=== PATIENT | female | born 1985 | race Caucasian/White ===

== ENCOUNTER 2016-10-28 16:33 | Emergency (ER) | payer OTHER ==
[2016-10-28] MEDS ORDERED: IBUPROFEN 600 MG TAB As Ordered ONE (16:56)
--- NOTE | 2016-10-28 17:59 | EDDOCDS ---
Physician Documentation [facility] Name: Genevieve Villeda Age: 31 yrs Sex: Female : 1985 Arrival Date: 10/28/2016 Time: 16:33 Bed 13 Private MD: Binta Chahal R. Disposition: 10/28/16 17:32 Discharged to Home/Self Care. Impression: Sprain of other specified parts of left knee. - Condition is Stable. - Discharge Instructions: Knee Sprain, Knee Immobilizer, [id number]. - Prescriptions for Crutches - One pair of Adult crutches. Ibuprofen 600 mg Oral Tablet - take 1 tablet by ORAL route every 8 hours As needed take with food; 20 tablet. - Work Release Form - 4 day, Medication Reconciliation, Local Pharmacy Hours form. - Follow up: Binta Chahal; When: Call to arrange an appointment. Follow up: Orthopaedics, [facility]; When: 2 - 3 days. - Problem is new. - Symptoms are unchanged. - Notes: follow up wiht ortho. use crutches and knee immobilizer until ortho evaluation. ice 3 times a day for 20 minutes Historical: - Allergies: NITROFURAN DERIVATIVES; - Home Meds: 1. none - PMHx: none; - PSHx: radius/ulna surgery; wisdom teeth; Cholecystectomy; LEEP Procedure; - Social history: Smoking status: Patient uses tobacco products, light tobacco smoker. No barriers to communication noted, The patient speaks fluent Rwandan, Speaks appropriately for age. - Family history: Not pertinent. - : The pt / caregiver states he / she is not on anticoagulants. Home medication list is obtained from the patient. - Exposure Risk Screening:: None identified. 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 8 in. (172.72 cm); 17:58 BP 118 / 67; Pulse 87; Resp 18; kc3 16:34 Body Mass Index 23.72 (70.76 kg, 172.72 cm) elp MDM: 16:54 Ibuprofen 600 mg PO once ordered. ml 16:55 Knee, Complete Ordered. EDMS 17:30 Knee Immobilizer ordered. 17:30 Crutches ordered. 17:42 Financial registration complete. ks16 17:43 [facility] Payment Agreement was scanned into [employer] and attached to record. ks16 Administered Medications: 16:58 Drug: Ibuprofen 600 mg [ibuprofen 600 mg tablet (1 tabs)] Route: PO; ttb Signatures: Dispatcher [employer] EDSC Gary Holland MD MD ml Júnior Corona RN RN mlb1 Ginger Lewis RN RN kc3 Dede Ge, Reg Reg ks16 Kristie Thornton RN ttb The chart was reviewed and I authenticate all verbal orders and agree with the evaluation and treatment provided.Attachments: 17:43 [facility] Payment Agreement ks16 MTDD
--- NOTE | 2016-10-28 17:59 | EDDOCDS ---
Nurse's Notes [facility] Name: Genevieve Villeda Age: 31 yrs Sex: Female : 1985 Arrival Date: 10/28/2016 Time: 16:33 Bed 13 Private MD: Binta Chahal R. Diagnosis: Sprain of other specified parts of left knee Presentation: 10/28 16:34 Presenting complaint: Patient states: Right knee injury while at work began while mlb1 carrying a TV upstairs. Adult Sepsis Screening: The patient does not have new or worsening altered mentation. Patient's respiratory rate is less than 22. Systolic blood pressure is greater than 100. Patient has a qSOFA score of 0- Negative Sepsis Screen. Suicide/Homicide risk assessment- the patient denies having any suicidal and/or homicidal ideations and does not present with any other emotional, behavioral or mental health complaints. Status: Patient is not a director client services or dependent. Transition of care: patient was not received from another setting of care. 16:34 Acuity: LISSY Level 4 mlb1 16:34 Method Of Arrival: Walkin/Carried/Asstd mlb1 Triage Assessment: 16:36 General: Appears in no apparent distress, Behavior is appropriate for age, cooperative. mlb1 Pain: Location: right knee Pain currently is 7 out of 10 on a pain scale. HIV screening NA for this visit Offered previously. 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 none - PMHx: none; - PSHx: radius/ulna surgery; wisdom teeth; Cholecystectomy; LEEP Procedure; - Social history: Smoking status: Patient uses tobacco products, light tobacco smoker. No barriers to communication noted, The patient speaks fluent Ukrainian, Speaks appropriately for age. - Family history: Not pertinent. - : The pt / caregiver states he / she is not on anticoagulants. Home medication list is obtained from the patient. - Exposure Risk Screening:: None identified. Screenin:57 Screening information is obtained from the patient. Fall risk: At risk due to injury, kc3 The following interventions are performed due to a positive Fall Risk Screen: Fall Risk is added to Special Handling on the patient Summary Screen. A Fall Risk Bracelet was applied to the patient. Side Rails are placed in the up position. A Call Delatorre is given with instruction to call for help when getting out of bed. Fall Alert bracelet is placed on the patient. Assistance ADL's: requires no assistance with activities of daily living. Abuse/DV Screen: The patient / caregiver reports he/she is: not in a situation that causes fear, pain or injury. Nutritional screening: No deficits noted. Advance Directives: Currently, there is no health care proxy. home support is adequate. Assessment: 17:56 General: Appears in no apparent distress, comfortable, Behavior is appropriate for age, kc3 cooperative. Pain: Location: right knee. Neurological: Level of Consciousness is awake, alert, obeys commands, Oriented to person, place, time. Respiratory: Respiratory effort is even, unlabored. Derm: Skin is pink, warm & dry. Musculoskeletal: Circulation, motion, and sensation intact Range of motion limited in right knee. Vital Signs: 16:34 BP 151 / 76; Pulse 85; Resp 16; Temp 98.8; Pulse Ox 98% ; Weight 70.76 kg; Height 5 ft. elp 8 in. (172.72 cm); 17:58 BP 118 / 67; Pulse 87; Resp 18; kc3 16:34 Body Mass Index 23.72 (70.76 kg, 172.72 cm) [facility] Vitals: 16:34 Log In Time: October 28, 2016 at 16:32. [facility] ED Course: 16:33 Patient visited by Odalys Hylton PCA. elp 16:33 Patient moved to Waiting elp 16:34 Binta Chahal is Private Physician. elp 16:34 Patient visited by Júnior Corona, YANELY. mlb1 16:34 Patient moved to Pre RCE elp 16:35 Patient visited by Odalys Hylton PCA. elp 16:35 Triage Initiated mlb1 16:37 Patient visited by Júnior Corona, RN. mlb1 16:48 Ginger Lewis,YANELY is Primary Nurse. ck1 16:48 Patient moved to 13 ck1 16:49 Gary Holland MD is Attending Physician. ml 16:49 Patient visited by Gary Holland MD. ml 17:32 Binta Chahal is Referral Physician. ml [facility] ml 17:43 [facility] Payment Agreement was scanned into [employer] and attached to record. ks16 17:57 No IV's were initiated during this patient's visit. No procedures done that require kc3 assistance. 17:58 The patient / caregiver is instructed regarding the plan of care and ED course. kc3 Administered Medications: 16:58 Drug: Ibuprofen 600 mg [ibuprofen 600 mg tablet (1 tabs)] Route: PO; ttb Order Results: There are currently no results for this order. Outcome: 17:32 Discharge ordered by Provider. 17:57 Discharge Assessment: Patient awake, alert and oriented x 3. No cognitive and/or kc3 functional deficits noted. Patient verbalized understanding of disposition instructions. patient administered narcotics - no. The following High Risk Discharge criteria are identified: None. Discharged to home ambulatory, with crutches. Condition: stable. Discharge instructions given to patient, Instructed on discharge instructions, follow up and referral plans. medication usage, crutch walking, Demonstrated understanding of instructions, crutch walking, medications, Pt was receptive of discharge instructions/ teaching. Prescriptions given X 1. No special radiology studies were completed. Property :Personal belongings accompany Pt. 17:59 Patient left the ED. kc3 Signatures: Gary Holland MD MD ml Júnior Corona, RN RN mlb1 Rachel Kennedy,RN RN ck1 Kristie Thornton, RN RN ttb Odalys Hylton, MANDI PCT Ginger Villegas RN RN kc3 Dede Ge, Reg Reg ks16 MTDD
--- NOTE | 2016-10-29 10:51 | REP ---
RIGHT KNEE, COMPLETE: 10/28/2016. Clinical history: Knee pain. Five views are provided. There is no joint space narrowing of the medial or lateral compartment. Patellofemoral joint space is preserved. There is no subluxation, dislocation, joint effusion, fracture, or loose body. No abnormal soft tissue calcifications or avulsion. Impression: 1. Negative right knee series for fracture, loose body, joint effusion or other significant finding. Signed by Hemant Israel MD 10/29/2016 07:00 P
--- NOTE | 2016-10-30 19:00 | EDDOCDS ---
Physician Documentation [facility] Name: Genevieve Villeda Age: 31 yrs Sex: Female : 1985 Arrival Date: 10/28/2016 Time: 16:33 Bed 13 Private MD: Binta Chahal R. Disposition: 10/28/16 17:32 Discharged to Home/Self Care. Impression: Sprain of other specified parts of left knee. - Condition is Stable. - Discharge Instructions: Knee Sprain, Knee Immobilizer, [id number]. - Prescriptions for Crutches - One pair of Adult crutches. Ibuprofen 600 mg Oral Tablet - take 1 tablet by ORAL route every 8 hours As needed take with food; 20 tablet. - Work Release Form - 4 day, Medication Reconciliation, Local Pharmacy Hours form. - Follow up: Binta Chahal; When: Call to arrange an appointment. Follow up: Orthopaedics, [facility]; When: 2 - 3 days. - Problem is new. - Symptoms are unchanged. - Notes: follow up wiht ortho. use crutches and knee immobilizer until ortho evaluation. ice 3 times a day for 20 minutes Historical: - Allergies: NITROFURAN DERIVATIVES; - Home Meds: 1. none - PMHx: none; - PSHx: radius/ulna surgery; wisdom teeth; Cholecystectomy; LEEP Procedure; - Social history: Smoking status: Patient uses tobacco products, light tobacco smoker. No barriers to communication noted, The patient speaks fluent Tuvaluan, Speaks appropriately for age. - Family history: Not pertinent. - : The pt / caregiver states he / she is not on anticoagulants. Home medication list is obtained from the patient. - Exposure Risk Screening:: None identified. 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 8 in. (172.72 cm); 17:58 BP 118 / 67; Pulse 87; Resp 18; kc3 16:34 Body Mass Index 23.72 (70.76 kg, 172.72 cm) elp MDM: 16:54 Ibuprofen 600 mg PO once ordered. ml 16:55 Knee, Complete Ordered. EDMS 17:30 Knee Immobilizer ordered. 17:30 Crutches ordered. 17:42 Financial registration complete. ks16 17:43 [facility] Payment Agreement was scanned into [employer] and attached to record. ks16 21:55 T-Sheet-- Draft Copy was scanned into [employer] and attached to record. klr Administered Medications: 16:58 Drug: Ibuprofen 600 mg [ibuprofen 600 mg tablet (1 tabs)] Route: PO; ttb Signatures: Dispatcher [employer] EDWI Gary Holland MD MD ml Júnior Corona RN RN mlb1 Ginger LewisRN RN kc3 Dede Ge, Reg Reg ks16 Priyanka Zamarripa Teresa RN ttb The chart was reviewed and I authenticate all verbal orders and agree with the evaluation and treatment provided.Attachments: 17:43 [facility] Payment Agreement ks16 21:55 T-Sheet-- Draft Copy klr Chart Complete MTDD
--- NOTE | 2016-10-30 19:00 | EDDOCDS ---
Nurse's Notes [facility] Name: Genevieve Villeda Age: 31 yrs Sex: Female : 1985 Arrival Date: 10/28/2016 Time: 16:33 Bed 13 Private MD: Binta Chahal R. Diagnosis: Sprain of other specified parts of left knee Presentation: 10/28 16:34 Presenting complaint: Patient states: Right knee injury while at work began while mlb1 carrying a TV upstairs. Adult Sepsis Screening: The patient does not have new or worsening altered mentation. Patient's respiratory rate is less than 22. Systolic blood pressure is greater than 100. Patient has a qSOFA score of 0- Negative Sepsis Screen. Suicide/Homicide risk assessment- the patient denies having any suicidal and/or homicidal ideations and does not present with any other emotional, behavioral or mental health complaints. Status: Patient is not a media services coordinator or dependent. Transition of care: patient was not received from another setting of care. 16:34 Acuity: LISSY Level 4 mlb1 16:34 Method Of Arrival: Walkin/Carried/Asstd mlb1 Triage Assessment: 16:36 General: Appears in no apparent distress, Behavior is appropriate for age, cooperative. mlb1 Pain: Location: right knee Pain currently is 7 out of 10 on a pain scale. HIV screening NA for this visit Offered previously. 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 none - PMHx: none; - PSHx: radius/ulna surgery; wisdom teeth; Cholecystectomy; LEEP Procedure; - Social history: Smoking status: Patient uses tobacco products, light tobacco smoker. No barriers to communication noted, The patient speaks fluent Tajik, Speaks appropriately for age. - Family history: Not pertinent. - : The pt / caregiver states he / she is not on anticoagulants. Home medication list is obtained from the patient. - Exposure Risk Screening:: None identified. Screenin:57 Screening information is obtained from the patient. Fall risk: At risk due to injury, kc3 The following interventions are performed due to a positive Fall Risk Screen: Fall Risk is added to Special Handling on the patient Summary Screen. A Fall Risk Bracelet was applied to the patient. Side Rails are placed in the up position. A Call Delatorre is given with instruction to call for help when getting out of bed. Fall Alert bracelet is placed on the patient. Assistance ADL's: requires no assistance with activities of daily living. Abuse/DV Screen: The patient / caregiver reports he/she is: not in a situation that causes fear, pain or injury. Nutritional screening: No deficits noted. Advance Directives: Currently, there is no health care proxy. home support is adequate. Assessment: 17:56 General: Appears in no apparent distress, comfortable, Behavior is appropriate for age, kc3 cooperative. Pain: Location: right knee. Neurological: Level of Consciousness is awake, alert, obeys commands, Oriented to person, place, time. Respiratory: Respiratory effort is even, unlabored. Derm: Skin is pink, warm & dry. Musculoskeletal: Circulation, motion, and sensation intact Range of motion limited in right knee. Vital Signs: 16:34 BP 151 / 76; Pulse 85; Resp 16; Temp 98.8; Pulse Ox 98% ; Weight 70.76 kg; Height 5 ft. elp 8 in. (172.72 cm); 17:58 BP 118 / 67; Pulse 87; Resp 18; kc3 16:34 Body Mass Index 23.72 (70.76 kg, 172.72 cm) [facility] Vitals: 16:34 Log In Time: October 28, 2016 at 16:32. [facility] ED Course: 16:33 Patient visited by Odalys Hylton PCA. elp 16:33 Patient moved to Waiting elp 16:34 Binta Chahal is Private Physician. elp 16:34 Patient visited by Júnior Corona, YANELY. mlb1 16:34 Patient moved to Pre RCE elp 16:35 Patient visited by Odalys Hylton PCA. elp 16:35 Triage Initiated mlb1 16:37 Patient visited by Júnior Corona, RN. mlb1 16:48 Ginger Lewis,YANELY is Primary Nurse. ck1 16:48 Patient moved to 13 ck1 16:49 Gary Holland MD is Attending Physician. ml 16:49 Patient visited by Gary Holland MD. ml 17:32 Binta Chahal is Referral Physician. ml [facility] ml 17:43 [facility] Payment Agreement was scanned into [email or web address] and attached to record. ks16 17:57 No IV's were initiated during this patient's visit. No procedures done that require kc3 assistance. 17:58 The patient / caregiver is instructed regarding the plan of care and ED course. kc3 21:55 T-Sheet-- Draft Copy was scanned into [email or web address] and attached to record. klr 10/29 11:10 Knee, Complete Returned. EDMS Administered Medications: 10/28 16:58 Drug: Ibuprofen 600 mg [ibuprofen 600 mg tablet (1 tabs)] Route: PO; ttb Order Results: Radiology Order: Knee, Complete Test: Knee, Complete REASON FOR EXAMINATION: pain; RIGHT KNEE, COMPLETE: 10/28/2016.; ; Clinical history: Knee pain.; ; Five views are provided. There is no joint space narrowing of the medial or; lateral compartment. Patellofemoral joint space is preserved. There is no; subluxation, dislocation, joint effusion, fracture, or loose body. No abnormal; soft tissue calcifications or avulsion.; ; Impression:; ; 1. Negative right knee series for fracture, loose body, joint effusion or other; significant finding.; ; ; Signed by; Hemant Irsael MD 10/29/2016 07:00 P; Outcome: 17:32 Discharge ordered by Provider. 17:57 Discharge Assessment: Patient awake, alert and oriented x 3. No cognitive and/or kc3 functional deficits noted. Patient verbalized understanding of disposition instructions. patient administered narcotics - no. The following High Risk Discharge criteria are identified: None. Discharged to home ambulatory, with crutches. Condition: stable. Discharge instructions given to patient, Instructed on discharge instructions, follow up and referral plans. medication usage, crutch walking, Demonstrated understanding of instructions, crutch walking, medications, Pt was receptive of discharge instructions/ teaching. Prescriptions given X 1. No special radiology studies were completed. Property :Personal belongings accompany Pt. 17:59 Patient left the ED. kc3 Signatures: Dispatcher [facility] EDMN Gary Holland MD MD ml Barney, Michael B RN RN mlb1 Rachel Kennedy RN RN ck1 Kristie Thornton RN RN ttb Odalys Hylton, MANDI CHRISTMAS BELL RINGER Ginger Villegas,YANELY RN kc3 Dede Ge, Reg Reg ks16 Priyanka Zamarripa Chart Complete MTDD
--- NOTE | 2016-10-30 19:01 | EDDOCDS ---
Physician Documentation [facility] Name: Genevieve Villeda Age: 31 yrs Sex: Female : 1985 Arrival Date: 10/28/2016 Time: 16:33 Bed 13 Private MD: Binta Chahal R. Disposition: 10/28/16 17:32 Discharged to Home/Self Care. Impression: Sprain of other specified parts of left knee. - Condition is Stable. - Discharge Instructions: Knee Sprain, Knee Immobilizer, [id number]. - Prescriptions for Crutches - One pair of Adult crutches. Ibuprofen 600 mg Oral Tablet - take 1 tablet by ORAL route every 8 hours As needed take with food; 20 tablet. - Work Release Form - 4 day, Medication Reconciliation, Local Pharmacy Hours form. - Follow up: Binta Chahal; When: Call to arrange an appointment. Follow up: Orthopaedics, [facility]; When: 2 - 3 days. - Problem is new. - Symptoms are unchanged. - Notes: follow up wiht ortho. use crutches and knee immobilizer until ortho evaluation. ice 3 times a day for 20 minutes Historical: - Allergies: NITROFURAN DERIVATIVES; - Home Meds: 1. none - PMHx: none; - PSHx: radius/ulna surgery; wisdom teeth; Cholecystectomy; LEEP Procedure; - Social history: Smoking status: Patient uses tobacco products, light tobacco smoker. No barriers to communication noted, The patient speaks fluent Guamanian, Speaks appropriately for age. - Family history: Not pertinent. - : The pt / caregiver states he / she is not on anticoagulants. Home medication list is obtained from the patient. - Exposure Risk Screening:: None identified. 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 8 in. (172.72 cm); 17:58 BP 118 / 67; Pulse 87; Resp 18; kc3 16:34 Body Mass Index 23.72 (70.76 kg, 172.72 cm) elp MDM: 16:54 Ibuprofen 600 mg PO once ordered. ml 16:55 Knee, Complete Ordered. EDMS 17:30 Knee Immobilizer ordered. 17:30 Crutches ordered. 17:42 Financial registration complete. ks16 17:43 [facility] Payment Agreement was scanned into [employer] and attached to record. ks16 21:55 T-Sheet-- Draft Copy was scanned into [employer] and attached to record. klr Administered Medications: 16:58 Drug: Ibuprofen 600 mg [ibuprofen 600 mg tablet (1 tabs)] Route: PO; ttb Signatures: Dispatcher [employer] EDMT Gray Holland MD MD ml Júnior Corona RN RN mlb1 Ginger LewisRN RN kc3 Dede Ge, Reg Reg ks16 Priyanka Zamarripa Teresa RN ttb The chart was reviewed and I authenticate all verbal orders and agree with the evaluation and treatment provided.Attachments: 17:43 [facility] Payment Agreement ks16 21:55 T-Sheet-- Draft Copy klr Chart Complete MTDD
== END 2016-10-28 17:59 | disposition home or self-care (01) ==
LOC: M ED 16:33
DX: S86.911A Strain of unspecified muscle(s) and tendon(s) at lower leg level, right leg, initial encounter (principal); X58.XXXA Exposure to other specified factors, initial encounter; Y92.89 Other specified places as the place of occurrence of the external cause; Y93.89 Activity, other specified; Y99.0 Civilian activity done for income or pay; Z88.1 Allergy status to other antibiotic agents; F17.210 Nicotine dependence, cigarettes, uncomplicated

== ENCOUNTER 2016-12-15 10:36 | Emergency (ER) | payer OTHER, SELFPAY ==
[~2016-12-15] VITALS: Ht 172.7 cm; Wt 80.3 kg
[2016-12-15 12:23] VITALS: BP 100/62
--- NOTE | 2016-12-17 16:15 | REP ---
Clinical: Pain. Technique: AP, lateral, bilateral oblique views of the left first digit. Findings: No acute fracture or dislocation appreciated. Subtle subluxation at the metacarpophalangeal joint should be correlated with physical examination and mechanism of injury. Impression: No acute fracture dislocation. Cannot exclude mild subluxation at the MCP joint. Signed by Alberto Taylor MD 12/15/2016 11:23 A
== END 2016-12-15 12:37 | disposition home or self-care (01) ==
LOC: M ED 12:01
DX: S66.292A Other specified injury of extensor muscle, fascia and tendon of left thumb at wrist and hand level, initial encounter (principal); X58.XXXA Exposure to other specified factors, initial encounter; Y92.099 Unspecified place in other non-institutional residence as the place of occurrence of the external cause; Y93.89 Activity, other specified; Y99.9 Unspecified external cause status; Z88.1 Allergy status to other antibiotic agents

== ENCOUNTER 2017-04-30 14:29 | Emergency (ER) | payer OTHER ==
[~2017-04-30] VITALS: Ht 170.2 cm; Wt 82.8 kg
[~2017-04-30 14:29] MED LIST: LIDOCAINE 1% MDV 20ML VIAL As Ordered ONE
[2017-04-30 14:30] VITALS: BP 121/72
[2017-04-30] MEDS ORDERED: AUGM875T28 PO (15:40)
== END 2017-04-30 15:54 | disposition home or self-care (01) ==
LOC: M ED 14:29
DX: S61.216A Laceration without foreign body of right little finger without damage to nail, initial encounter (principal); S60.416A Abrasion of right little finger, initial encounter; W27.0XXA Contact with workbench tool, initial encounter; Y92.099 Unspecified place in other non-institutional residence as the place of occurrence of the external cause; Y93.89 Activity, other specified; Y99.9 Unspecified external cause status; F17.200 Nicotine dependence, unspecified, uncomplicated; Z88.1 Allergy status to other antibiotic agents

== ENCOUNTER 2018-12-05 17:18 | Inpatient (IN) | payer OTHER ==
[~2018-12-05] VITALS: Ht 170.2 cm; Wt 101.2 kg
[2018-12-05] MEDS: NICOTINE 21MG/24HR 1 EA TRANSDERMAL TD SCH (09:00)
[~2018-12-05 17:18] MED LIST changes: +AUGM875T28 PO; -LIDOCAINE 1% MDV 20ML VIAL As Ordered ONE
[2018-12-05] MEDS ORDERED: HYDR-3363 PO (17:25)
[2018-12-05] MEDS ORDERED: ZOLO50TA PO (17:25)
[2018-12-05 18:22] LABS: HEMOGLOBIN 14.1 g/dl (12.0-15.5); MEAN CORPUSCULAR HEMOGLOBIN 28.3 pg (27.0-33.0); MEAN CORPUSCULAR HGB CONC 32.8 g/dl (32.0-36.5); MEAN CORPUSCULAR VOLUME 86.2 fl (80.0-96.0); PLATELET COUNT, AUTOMATED 285 10^3/uL (150-450); RED BLOOD COUNT 4.99 10^6/uL (4.00-5.40); WHITE BLOOD COUNT 15.1 10^3/uL (4.0-10.0)
[2018-12-05 18:48] LABS: HCG, SERUM QUALITATIVE NEGATIVE (NEGATIVE)
[2018-12-05 18:55] LABS: ACETAMINOPHEN LEVEL < 2.0 UG/ML (10.0-30.0); ALBUMIN 3.8 GM/DL (3.2-5.2); ALT/SGPT 22 U/L (12-78); BILIRUBIN,DIRECT < 0.1 MG/DL (0.0-0.2); BILIRUBIN,TOTAL 0.2 MG/DL (0.2-1.0); BLOOD UREA NITROGEN 15 MG/DL (7-18); CALCIUM LEVEL 8.6 MG/DL (8.5-10.1); CARBON DIOXIDE LEVEL 29 MEQ/L (21-32); CHLORIDE LEVEL 108 MEQ/L (98-107); CREATININE FOR GFR 0.88 MG/DL (0.55-1.30); ETHYL ALCOHOL (ETHANOL) < 0.003 % (0.000-0.010); GLOMERULAR FILTRATION RATE > 60.0 (>60); GLUCOSE, FASTING 93 MG/DL (70-100); POTASSIUM SERUM 3.8 MEQ/L (3.5-5.1); SALICYLATE LEVEL < 1.7 MG/DL (5.0-30.0); SODIUM LEVEL 142 MEQ/L (136-145); TOTAL PROTEIN 7.3 GM/DL (6.4-8.2)
[2018-12-05 19:59] LABS: AMPHETAMINES LEVEL URINE NEGATIVE (NEGATIVE); BARBITURATES URINE NEGATIVE (NEGATIVE); BENZODIAZEPINES URINE NEGATIVE (NEGATIVE); CANNABINOIDS URINE NEGATIVE (NEGATIVE); COCAINE METABOLITE URINE NEGATIVE (NEGATIVE); METHADONE URINE NEGATIVE (NEGATIVE); OPIATES URINE NEGATIVE (NEGATIVE); PHENCYCLIDINE URINE NEGATIVE (NEGATIVE)
[2018-12-05] MEDS ORDERED: MOM 30ML SUSPENSION UDC PO PRN (20:45)
[2018-12-05] MEDS ORDERED: MAALOX 30 ML SUSP *UDC PO PRN (20:45)
[2018-12-05 22:15] VITALS: BP 141/90
[2018-12-05] MEDS: traZODone 50 MG TAB PO PRN (22:54)
[2018-12-05] MEDS: hydrOXYzine 25 MG TAB PO PRN (22:54)
[2018-12-06 06:42] VITALS: BP 113/55
[2018-12-06] MEDS: hydrOXYzine 25 MG TAB PO PRN (08:52)
[2018-12-06] MEDS: NICOTINE 21MG/24HR 1 EA TRANSDERMAL TD SCH (08:52)
--- NOTE | 2018-12-06 09:30 | HPEPDOC ---
[facility] Medical History & Physical Date of Admission Dec 05, 2018 History and Physical PCP: Tish DE LA TORRE ATTENDING: Dr. Nicola Blake HPI: 33yoF admitted to [facility] for depression, being medically examined today. No acute medical complaints today. Pt provides limited history. Denies any fevers, chills, weakness, fatigue, DÍAZ, CP, SOB, cough, palpitations, abdominal pain, N/V/D or changes in bowel or bladder habits. PMHx: Anxiety panic attack depression H/o SI Chronic rt knee pain related to work injury, WComp. Follows with [facility]. Obesity. BMI 34.9 PSHX: Left wrist surgery cholecystectomy wisdom teeth extraction Mirena IUD. SOCHX: Resides in: [facility] Marital Status: single Kids: 3 Employment: [employer] employee Tobacco use: denies ETOH: denies Illicit Drugs: Denies IV Drug Use: Denies Tattoos done unprofessionally: Denies FAMHX: Mother: Alive, unknown Father: Pt reported unknown, per ED record Pt reported bio father completed suicide 3 yr ago. Siblings: 2 half sisters Alive, well Children: Alive, well ROS: As noted in HPI, otherwise 11pt ROS of systems reviewed and remarkable only for LMP 6 mo ago, Mirena IUD. PE: GEN: 33yoF, appears stated age. Well-nourished, well developed. No acute distress. Alert and oriented x 3. teary throughout exam, avoids eye contact, short responses. HEENT: Normocephalic, atraumatic. Pupils are equal, round, and reactive to light. Extraocular movements are intact. No nystagmus appreciated. Sclera are nonicteric. Conjunctiva without injection. Nose midline. Nasal turbinates without bogginess. EACs both patent BL. TMs both visualized and leavitt with good cone of light, no bulging or erythema. No facial asymmetry. Moist mucous membranes. Dentition fair. Pharynx pink and moist, no cobblestoning. Neck supple, trachea midline. No lymphadenopathy or thyromegaly appreciated. CHEST: Regular rate and rhythm, +S1, +S2 LUNGS: Clear to auscultation bilaterally. No wheezes, rales, or rhonchi. Breathing appears symmetric and easy. Patient is speaking in full sentences. No accessory muscle use. ABD: Round, soft, non-tender, non-distended. +Bowel sounds throughout. No rebound or guarding. No costovertebral angle tenderness. EXT: Pulses 2+ bilaterally dorsalis pedis and radial. No lower extremity edema appreciated. SKIN: [place], dry, warm. Capillary refill <2sec. No rashes. NEURO: Alert and oriented x 3. Cranial nerves III-XII are intact. No focal de ficits appreciated. EKG: pending A&P: 33yoF admitted to [facility] for depression 1. Psych. Plan per Psychiatry. Obtain baseline EKG to assure the safety of psychiatric medications as they can prolong the QT interval. 2. Leukocytosis. Pt is afebrile. Asymptomatic. Possible stress response. Recheck CBC in Am. 3. Follow up with PCP on discharge. 4. Obesity. BMI 34.9 Complicates care. TSH WNL. Glucose 93 on admission labs. 5. Staff member Андрей present throughout exam. Vital Signs Vital Signs Date Time Temp Pulse Resp B/P (MAP) Pulse Ox O2 Delivery O2 Flow Rate FiO2 12/06/18 06:42 99.7 74 14 113/55 (74) 12/05/18 22:15 97 12/05/18 21:25 Room Air Laboratory Data Labs 24H Laboratory Tests 2 12/05/18 18:03: Nucleated Red Blood Cells % (auto) 0.0, Anion Gap 5L, Glomerular Filtration Rate > 60.0, Calcium Level 8.6, Aspartate Amino Transf (AST/SGOT) 14, Alanine Am inotransferase (ALT/SGPT) 22, Alkaline Phosphatase 116, Total Bilirubin 0.2, Direct Bilirubin < 0.1, Total Protein 7.3, Albumin 3.8, Albumin/Globulin Ratio 1.09, Thyroid Stimulating Hormone (TSH) 1.580, Human Chorionic Gonadotropin, Qual NEGATIVE, Salicylates Level < 1.7L, Acetaminophen Level < 2.0L, Ethyl Alcohol Level < 0.003 12/05/18 19:25: Urine Amphetamines Screen NEGATIVE, Urine Benzodiazepines Screen NEGATIVE, Urine Opiates Screen NEGATIVE, Urine Methadone Screen NEGATIVE, Urine Barbiturates Screen NEGATIVE, Urine Phencyclidine Screen NEGATIVE, Urine Cocaine Metabolite Screen NEGATIVE, Urine Cannabinoids Screen NEGATIVE CBC/BMP Laboratory Tests 12/05/18 18:03 Red Blood Count 4.99, Mean Corpuscular Volume 86.2, Mean Corpuscular Hemoglobin 28.3, Mean Corpuscular Hemoglobin Concent 32.8, Red Cell Distribution Width 12.5 Home Medications Scheduled Sertraline Hcl (Zoloft) 50 Mg Tab, 50 MG PO DAILY Scheduled PRN Hydroxyzine HCl (Hydroxyzine HCl) 25 Mg Tab, 25 MG PO TID PRN for ANXIETY/AGITATION Allergies Coded Allergies: Nitrofurantoin (Verified Allergy, Unknown, 12/15/16) Amber Muhammad Dec 06, 2018 09:30
[2018-12-06] MEDS: SERTRALINE HCL 50 MG TAB PO SCH (12:28)
[2018-12-06] MEDS: ARIPiprazole 2 MG TAB PO SCH ×2 (12:28→20:32)
[2018-12-06] MEDS ORDERED: OLANZapine ORAL DISINTEGRATING TAB 5MG PO ONE (12:30)
--- NOTE | 2018-12-06 12:50 | MHHPEPDOC ---
General Date Of Admission: Dec 05, 2018 Legal Status: 9.39 Chief Complaint "i came because I've been feeling more sad " History of Present Illness HISTORY OF THE PRESENT ILLNESS: Patient is a 33 -year-old , female, who according to the ED notes: " PT states that she noticed she was feeling depressed a few months ago and she had one episode of uncontrolled crying that lasted 2 days and then she worked herself out of it. On Sunday (11/29/2018) she started having mood swings that include uncontrolled crying and she cannot get it under control. PT states she has been having SI "Would anyone even care if I wasnt here. If I dont wake up in the morning I dont care". PT states that typically when the SI begins she starts to think of her children but 3 days ago she allowed herself to think furthur with the SI and envisioned herself hanging. She saw her PCP as a result and was prescribed Zoloft and Hydroxyzine but after taking them she slept for 16 hours and has continued to have the mood swings with crying. PT did not knonw her bio father until she was 18 years old and he committed suicide by shotgun 3 years ago and the anniversary is coming up. PT has had the same job for 6 years and feels she has had General Managers that were very rude an would actually yell at people. She feels bullied by the current GM and has filed a complaint only to be told by her product manager e commerce to "suck it up". When PT arrives for work she has to stay in her car due to panic attacks and it takes lomgerr each time for her to calm. PT is currently engaged and describes her fiance as trying to be supportive but he doesn't know how to help so he will say nothing or go to a different room. When PT was school aged she would punch mota when angry and believes she was made to participate in anger management groups. She caanot CFS and cannot stop crying. She is open to admission. Psychiatric Review of Systems Depression (2 or more weeks): depressed mood, anhedonia, insomnia/hypersomnia, feelings of worthlesness (hopelessness and hopelessness), decreased energy, difficulty concentrating, appetite changes (Has gained weight (over a hundred pounds), she feels hungry all the time, but some days she doesn't want to eat), psychomotor changes (psychomotor retardation), suicidal thoughts (passive and active, started this week) Ora (4 or more days of): denies Psychosis: denies PTSD: avoidance of triggers (She doesn't like to talk about her childhood, which was traumatic but when she does, she gets overwhelmed when she talks about it), mood fluctuations Anxiety: gen/non-specific anxiety, situational anxiety, stressor related anxiety, panic attacks Anxiety/ 6 months or more of: restlessness, keyed up, easily fatigued, difficulty concentrating, muscle tension, sleep disturbance Past Psychiatric History Previous Psychiatric Diagnosis: Denies Previous Psychiatric Admissions: Denies Suicide Attempts: Denies Psychiatric Follow-up: She has gone to therapy for anger management "somewhere in [place]" Psychiatric medications: Denies Past Medical History Medical Problems Denies Head Injury: No Seizures: No Hospitalizations: Yes ([facility] because her liveR "SHUT DOWN". SHE was at the hospital 2 weeks) Surgeries: Yes (Radius and ulna put back together with pins, her wisdom teeth was removed, gallbladder removed.) Family Medical/Psychiatric HX Medical Problems COPD (MOTHER) Psychiatric Disorders: Yes (Father killed himself a couple of years ago, mother has angry outbursts, she is manipulative) Addiction: Yes (MOTHER HAD A SEVERE ALCOHOL ABUSE.) Suicide Attemps/Completions: Yes Addiction History nicotine ("I used to", "I haven't smoked for over a year"), alcohol (occasionally about 2 drinks), other (marijuana, earlier in life) Social History Childhood: It was bad. She says she grew mostly with her mother, she was always told she doesn't have a father but at age 18 he showed up as he always did, be cause he came to talk with her mother. her cousin asked her to go hunting and she asked her mother permission to go with her cousin and all of a sudden stands up and tells her "No, I'm going to take you hunting because I'm your father". she told him "I don't have a father", her mother said, "yes, this is your father, maybe you should go hunting with him"., her mother liked to travel, vry frequently they went to the mountains, her mother got drunk and had sex with neighbors in the middle of the living room. mother has always told her that she is a liar. Abuse/Trauma: See above Current Living Situation: She lives with her shylae Education: diploma, has an IEP, it takes her a little while to read. Employment: Works at [employer] Social Support: She doesn't feel that his fiancee would be supportive but she says it is her, she doesn't feel loved even when she knows that he loves her. Legal: She had a bad custody mendez for one of her children with her ex high school [employer]. She has to go to court in these days. Marital: from previous who was in the . she says it was rough, he had been cheating on her. She has 2 children from her ex and one from her HS [employer] with whom she had a custody mendez that was very bad. Mental Status Examination General Appearance: unkempt, disheveled, appears stated age, hospital scubs/clothing Build: average Demeanor: withdrawn, preoccupied Eye Contact: poor Activity: agitated, slowed, anxious Behavior: cooperative, agitated (but it was more like restlessness), restless, loss of interests, anhedonia Speech: clear, spontaneous, normal volume, reg/rate,rhythm,volume Mood: depressed, anxious, angry (but she is not acting upon it) Affect: appropriate, labile, congruent, anxious, other (sad) Thought Process: logical/linear, associative Thought Content (Delusions): none reported Thought Content (Other): preoccupied, obsessional, guilty, ideas of reference, appears paranoid (About her mother ) Thought Content (Aggressive): none reported Perception (Hallucinations): none reported Perception (Other): none reported Cognition (Impairment of): none reported Cognition(Intelligence Est.): average Oriented: Awake, Alert, Oriented times three Insight: poor Judgment: Poor Psychosis: Denies Diagnoses 1. Major Depressive Disorder, severe 2. R/O Persistent Depressive disorder 2. borderline Personality disorder Initial Treatment Plan 1. Patient was admitted on a [9.39] status. 2. Complete history was obtained. 3. With patients permission, family will be contacted and database will be expanded. 4. Patients medication regimen will be reviewed and changed accordingly. 5. Patient will be provided with protected environment. 6. Patient will be treated with individual, group, and milieu therapies. 7. Patient will receive supportive psych-education. 8. Discharge planning will commence immediately. 9. Outpatient follow-up treatment will be strongly recommended. 10. The initial treatment plan will focus initially on: * Depression. * Anxiety * Risk for suicide. * Ineffective coping * Poor judgment * Anger * Risk for self harm ESTIMATED LENGTH OF STAY: 5-7 DAYS. TIME SPENT COUNSELING AND COORDINATING INITIAL CARE: 70 minutes. Vital Signs Vital Signs Date Time Temp Pulse Resp B/P (MAP) Pulse Ox O2 Delivery O2 Flow Rate FiO2 12/06/18 06:42 99.7 74 14 113/55 (74) 12/05/18 22:15 97 12/05/18 21:25 Room Air Laboratory Data 24H Labs Laboratory Tests 2 12/05/18 18:03: Nucleated Red Blood Cells % (auto) 0.0, Anion Gap 5L, Glomerular Filtration Rate > 60.0, Calcium Level 8.6, Aspartate Amino Transf (AST/SGOT) 14, Alanine Aminotransferase (ALT/SGPT) 22, Alkaline Phosphatase 116, Total Bilirubin 0.2, Direct Bilirubin < 0.1, Total Protein 7.3, Albumin 3.8, Albumin/Globulin Ratio 1.09, Thyroid Stimulating Hormone (TSH) 1.580, Human Chorionic Gonadotropin, Qual NEGATIVE, Salicylates Level < 1.7L, Acetaminophen Level < 2.0L, Ethyl Alcohol Level < 0.003 12/05/18 19:25: Urine Amphetamines Screen NEGATIVE, Urine Benzodiazepines Screen NEGATIVE, Urine Opiates Screen NEGATIVE, Urine Methadone Screen NEGATIVE, Urine Barbiturates Screen NEGATIVE, Urine Phencyclidine Screen NEGATIVE, Urine Cocaine Metabolite Screen NEGATIVE, Urine Cannabinoids Screen NEGATIVE CBC/BMP Laboratory Tests 12/05/18 18:03 Red Blood Count 4.99, Mean Corpuscular Volume 86.2, Mean Corpuscular Hemoglobin 28.3, Mean Corpuscular Hemoglobin Concent 32.8, Red Cell Distribution Width 12.5 Medications Scheduled Sertraline Hcl (Zoloft) 50 Mg Tab, 50 MG PO DAILY, (Reported) Scheduled PRN Hydroxyzine HCl (Hydroxyzine HCl) 25 Mg Tab, 25 MG PO TID PRN for ANXIETY/AGITATION, (Reported) Allergies Coded Allergies: Nitrofurantoin (Verified Allergy, Unknown, 12/15/16) LAINA AVERY MD Dec 06, 2018 12:14
[2018-12-06] MEDS: ACETAMINOPHEN TAB 650MG DOSE (2X325MG) PO PRN (14:52)
[2018-12-06 18:02] VITALS: BP 112/63
[2018-12-06] MEDS: hydrOXYzine 50 MG TAB PO PRN (20:32)
[2018-12-06] MEDS: traZODone 50 MG TAB PO PRN (21:33)
--- NOTE | 2018-12-07 00:25 | ECGEPIP ---
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
[2018-12-07 06:30] VITALS: BP 128/69
[2018-12-07 07:47] LABS: HEMATOCRIT 41.8 % (36.0-47.0); HEMOGLOBIN 13.3 g/dl (12.0-15.5); MEAN CORPUSCULAR HEMOGLOBIN 28.2 pg (27.0-33.0); MEAN CORPUSCULAR HGB CONC 31.8 g/dl (32.0-36.5); MEAN CORPUSCULAR VOLUME 88.6 fl (80.0-96.0); PLATELET COUNT, AUTOMATED 249 10^3/uL (150-450); RED BLOOD COUNT 4.72 10^6/uL (4.00-5.40); WHITE BLOOD COUNT 9.3 10^3/uL (4.0-10.0)
[2018-12-07] MEDS: SERTRALINE HCL 50 MG TAB PO SCH (08:20)
[2018-12-07] MEDS: ACETAMINOPHEN TAB 650MG DOSE (2X325MG) PO PRN (08:20)
[2018-12-07] MEDS: ARIPiprazole 2 MG TAB PO SCH ×2 (08:20→21:54)
[2018-12-07] MEDS: hydrOXYzine 50 MG TAB PO PRN ×2 (13:44→17:36)
[2018-12-07 18:00] VITALS: BP 130/75
[2018-12-07] MEDS: traZODone 50 MG TAB PO PRN (21:54)
[2018-12-08 06:28] VITALS: BP 124/65
[2018-12-08] MEDS: SERTRALINE HCL 50 MG TAB PO SCH (08:32)
[2018-12-08] MEDS: ARIPiprazole 2 MG TAB PO SCH ×2 (08:32→21:19)
[2018-12-08] MEDS: hydrOXYzine 50 MG TAB PO PRN ×2 (11:51→22:50)
--- NOTE | 2018-12-08 13:54 | MHIPN ---
DATE: 12/07/2018 CHIEF COMPLAINT: She says she feels stressed. SUBJECTIVE: She is seen for followup. She indicates she feels stressed, slept fairly better, and possibly a little less anxious today. She says her appetite is fair. She says she tries not to think about her stressors, but that her partner will be possibly visiting her today. She says when he tends to reassure her she feels better. MENTAL STATUS EXAMINATION: She is seen in the presence of staff. She is neat, a bit guarded, but overall cooperative. Answers questions briefly, logically. Fair eye contact. No agitation. No psychomotor retardation as such. Affect is restricted in range. Denies any suicidal thoughts or intents. No homicidal ideas or intents. No evidence of any psychosis. Cognition grossly intact. Judgment is questionable as is insight. ASSESSMENT: Major depressive disorder. PLAN: Continue current care, observations, obtain collateral information. Meanwhile, I would suggest continuing with the sertraline at 50 mg daily, aripiprazole 4 mg a day in divided doses as well as hydroxyzine 50 mg every four hours as needed for anxiety. She is to be encouraged to participate in activities on the unit. Further recommendations will be made depending on the clinical picture. VITAL SIGNS: Blood pressure 128/69, pulse 94, temperature 97.3.
[2018-12-08 18:00] VITALS: BP 127/74
[2018-12-09 06:00] VITALS: BP 131/71
--- NOTE | 2018-12-09 06:35 | MHIPN ---
DATE OF VISIT: 12/08/2018 CHIEF COMPLAINT: She is anxious. SUBJECTIVE: Followup in the presence of staff. Says she is anxious and has periods of panic, some provoked, others unprovoked, including this afternoon. She says sleep was fair. MENTAL STATUS EXAM: Neat, cooperative, no agitation, no psychomotor retardation. Affect is restricted, but it is broader than it was yesterday. Currently denies any suicidal thoughts or intentions, no homicidal ideas or intents. No evidence of any psychosis. Cognition is grossly intact. Insight and judgment are fair. VITAL SIGNS: Blood pressure 124/65, pulse 65, temperature 97.3. ASSESSMENT: 1. Major depressive disorder. 2. Consider panic disorder. PLAN: Continue current care with Sertraline at 50 mg daily, Abilify 4 mg daily in divided doses and hydroxyzine 50 mg every four hours as needed for anxiety. I would suggest obtaining collateral information and encouraging the patient to participate in activities in the unit and focusing on nonpharmacologic ways of diminishing the anxiety, sense of panic. She will be seeing the psychiatrist and the rest of the treatment team tomorrow.
[2018-12-09] MEDS: SERTRALINE HCL 50 MG TAB PO SCH (08:08)
[2018-12-09] MEDS: ARIPiprazole 2 MG TAB PO SCH ×2 (08:08→21:33)
[2018-12-09] MEDS: hydrOXYzine 50 MG TAB PO PRN ×2 (10:24→14:43)
--- NOTE | 2018-12-09 15:50 | MHIPNPDOC ---
[facility] Progress Note Progress Note DATE OF SERVICE: 12/09/18 HISTORY: See HPI. Patient reports she had a panic attack on Sunday, says she felt "hot" and had to sit down. States she took an as needed medication for anxiety which helped her symptoms to sendy. She denies any panic attacks since then. She reports poor sleep last night because the nurse kept opening the door throughout the night. Reports she feels "a lot better" since arriving on the unit and her depression is "better" but still present. States playing cards with other patients helps bring her out of her "sad moods". Says she also has some guilt related to missing her child's award show. Says she still feels "unloved" and that she needs to have a conversation with her fiancee as he "has been through the same thing I am going through at work". Reports several financial stressors including car payments and rent, reports that they are not able to work desirable jobs due to these jobs and that this puts strain on the family. Denies AVH/manny/PTSD/SI/HI. VITAL SIGNS: See below. NEW TEST RESULTS: Repeat CBC 12/07 unremarkable. CURRENT MEDICATIONS: See below. MENTAL STATUS EXAMINATION: Patient is a 33-year old female, who is in no acute distress, A/O x4, in hos pital clothing, poor eye-contact, has 2 lip rings, overweight, cooperative. Speech: Is normal rate, rhythm, volume Language skills are intact Thought processes including: linear, logical. Thought content: Life stressors outside the inpatient unit. Abstract reasoning, and computation: intact Description of associations: intact Description of abnormal or psychotic thoughts: denies Judgment: improving Insight: fair Orientation: x4 Recent and remote memory: intact Attention span and concentration: intact Language: tajik. Fund of knowledge: average. Mood: "a lot better". Affect: anxious, constricted, mood-congruent, no smiling DIAGNOSES: 1. Major Depressive Disorder, severe 2. R/O Persistent Depressive disorder 3. borderline Personality disorder ASSESSMENT: Patient is a 33 year old woman with no PPH who was recently started on sertraline by her PCP, but continued to have worsening d epression and crying spells since her father's suicide. Has past suicidal ideation. Endorses financial stressors. Depression improving. MANAGEMENT PLAN: Will continue to monitor for depression symptoms, anxiety, panic attacks, suicidal thoughts/safety, homicidal thoughts. Will continue to encourage to attend group therapy sessions and provide individual therapy. Will continue to monitor for medication side effects. Zoloft will be increased to 75 mgs and Trazodone will be discontinued. Instead of Trazodone she will be taking Seroquel 75 mgs PO QHS TIME SPENT: 30 minutes. Vital Signs Vital Signs Date Time Temp Pulse Resp B/P (MAP) Pulse Ox O2 Delivery O2 Flow Rate FiO2 12/09/18 06:00 97.3 82 18 131/71 (91) 12/05/18 22:15 97 12/05/18 21:25 Room Air Current Medications Current Medications Acetaminophen (Tylenol Tab) 650 mg Q6HP PRN PO HEADACHE or DISCOMFORT Last administered on 12/07/18at 08:20; Start 12/05/18 at 20:45 Al Hydrox/Mg Hydrox/Simethicone (Mylanta) 30 ml Q4HP PRN PO HEARTBURN/INDIGESTION; Start 12/05/18 at 20:45 Aripiprazole (AbiLIFY) 2 mg BID PO Last administered on 12/09/18at 08:08; Start 12/06/18 at 09:00 Home Med (Med Rec Complete!) ASDIRECTED XX ; Start 12/05/18 at 19:00; Stop 12/05/18 at 19:05; Status DC Hydroxyzine HCl (Atarax) 25 mg Q6HP PRN PO ANXIETY Last administered on 12/06/18at 08:52; Start 12/05/18 at 23:00; Stop 12/06/18 at 12:20; Status DC Hydroxyzine HCl (Atarax) 50 mg Q4HP PRN PO ANXIETY Last administered on 12/09/18at 14:43; Start 12/06/18 at 12:30 Magnesium Hydroxide (Milk Of Magnesia) 30 ml DAILYPRN PRN PO CONSTIPATION; Start 12/05/18 at 20:45 Nicotine (Nicoderm Cq 21mg) 1 patch DAILY TD ; Start 12/05/18 at 09:00; Stop 12/06/18 at 12:19; Status DC Sertraline HCl (Zoloft) 50 mg QAM PO Last administered on 12/09/18at 08:08; Start 12/06/18 at 09:00 Trazodone HCl (Desyrel) 50 mg QHSP PRN PO INSOMNIA Last administered on 12/07/18at 21:54; Start 12/05/18 at 20:45 Allergies Coded Allergies: Nitrofurantoin (Verified Allergy, Unknown, 12/15/16) [facility] PGY-1 Dec 09, 2018 15:50 LAINA AVERY MD Dec 09, 2018 16:19
[2018-12-09 18:00] VITALS: BP 168/97
[2018-12-09] MEDS: QUEtiapine FUMARATE 25 MG TAB PO SCH (21:34)
[2018-12-10 06:40] VITALS: BP 125/58
[2018-12-10] MEDS: ARIPiprazole 2 MG TAB PO SCH ×2 (08:25→21:20)
[2018-12-10] MEDS: SERTRALINE HCL 25 MG TABLET PO SCH (08:25)
[2018-12-10] MEDS: hydrOXYzine 50 MG TAB PO PRN (12:16)
[2018-12-10 18:00] VITALS: BP 136/84
--- NOTE | 2018-12-10 20:12 | MHIPNPDOC ---
[facility] Progress Note Progress Note DATE OF SERVICE: 12/10/18 HISTORY: See HPI. Interval History: Patient reports that her mood continues to improve. She continues to have moderate anxiety. Says sleep and apetite are good. States that she receives support from her partner's family. Was visited by her mother in law who is watching her children. She also gets updates on her children and pictures, which she says has helped ease her anxiety. When asked if she feels ready to leave, she endorses that she may be "overwhelmed" at this time if she returns home. She denies side effects of her medications and says they are well tolerated. She also reports the knee brace has aided with her mobility, reducing discomfort while ambulating on the unit. Denies AVH/manny/PTSD/SI/HI. VITAL SIGNS: See below. NEW TEST RESULTS: None CURRENT MEDICATIONS: See below. MENTAL STATUS EXAMINATION: Patient is a 33-year old female, who is in no acute distress, A/O x4, in hospital clothing, improved good eye-contact, has 2 lip rings and tattoo on R arm, overweight, cooperative. Speech: Is normal rate, rhythm, volume Language skills are intact Thought processes including: linear, logical. Thought content: Life stressors outside the inpatient unit. Abstract reasoning, and computation: intact Description of associations: intact Description of abnormal or psychotic thoughts: denies Judgment: good Insight: fair Orientation: x4 Recent and remote memory: intact Attention span and concentration: intact Language: macanese. Fund of knowledge: average. Mood: "good". Affect: anxious, constricted, mood-congruent, does smile DIAGNOSES: 1. Major Depressive Disorder, severe 2. R/O Persistent Depressive disorder 3. borderline Personality disorder ASSESSMENT: Patient is a 33 year old woman with no PPH who was recently started on sertraline by her PCP, but continued to have worsening depression and crying spells since her father's suicide. Has past suicidal ideation. Endorses financial stressors. Today depression and anxiety continue to improve. She has been seen in social milieu and engages in group therapy sessions. Continues to have labile mood, but endorses learning anxiety tolerance in groups and improved coping skills. Continues to require hospitalization to stabilize her condition and monitor for safety/medication side effects. Denies panic attacks while in the hospital. MANAGEMENT PLAN: Will continue to monitor for depression symptoms, anxiety, panic attacks, suicidal thoughts/safety, homicidal thoughts. Will continue to encourage to attend group therapy sessions and provide individual therapy. Will continue to monitor for medication side effects. No medication changes: continue Zoloft 75 mgs PO daily for mood and continue Seroquel 75 mgs PO QHS for sleep. Continue aripiprazole 2 mg Po BID for augmentation of SSRI/mood lability. TIME SPENT: 15 minutes. Vital Signs Vital Signs Date Time Temp Pulse Resp B/P (MAP) Pulse Ox O2 Delivery O2 Flow Rate FiO2 12/10/18 18:00 99.2 77 18 136/84 (101) 12/05/18 22:15 97 12/05/18 21:25 Room Air Current Medications Current Medications Acetaminophen (Tylenol Tab) 650 mg Q6HP PRN PO HEADACHE or DISCOMFORT Last adm inistered on 12/07/18at 08:20; Start 12/05/18 at 20:45 Al Hydrox/Mg Hydrox/Simethicone (Mylanta) 30 ml Q4HP PRN PO HEARTBURN/IND IGESTION; Start 12/05/18 at 20:45 Aripiprazole (AbiLIFY) 2 mg BID PO Last administered on 12/10/18at 08:25; Start 12/06/18 at 09:00 Home Med (Med Rec Complete!) ASDIRECTED XX ; Start 12/05/18 at 19:00; Stop 12/05/18 at 19:05; Status DC Hydroxyzine HCl (Atarax) 25 mg Q6HP PRN PO ANXIETY Last administered on 12/06/18at 08:52; Start 12/05/18 at 23:00; Stop 12/06/18 at 12:20; Status DC Hydroxyzine HCl (Atarax) 50 mg Q4HP PRN PO ANXIETY Last administered on 12/10/18at 12:16; Start 12/06/18 at 12:30 Magnesium Hydroxide (Milk Of Magnesia) 30 ml DAILYPRN PRN PO CONSTIPATION; Start 12/05/18 at 20:45 Nicotine (Nicoderm Cq 21mg) 1 patch DAILY TD ; Start 12/05/18 at 09:00; Stop 12/06/18 at 12:19; Status DC Quetiapine Fumarate (SEROquel) 75 mg QHS PO Last administered on 12/09/18at 21:34; Start 12/09/18 at 21:00 Sertraline HCl (Zoloft) 50 mg QAM PO Last administered on 12/09/18at 08:08; Sta rt 12/06/18 at 09:00; Stop 12/09/18 at 15:54; Status DC Sertraline HCl (Zoloft) 75 mg QAM PO Last administered on 12/10/18at 08:25; Start 12/10/18 at 09:00 Trazodone HCl (Desyrel) 50 mg QHSP PRN PO INSOMNIA Last administered on 12/07/18at 21:54; Start 12/05/18 at 20:45; Stop 12/09/18 at 15:53; Status DC Allergies Coded Allergies: MS - Nitrofurantoin (Verified Allergy, Unknown, 12/15/16) [facility] PGY-1 Dec 10, 2018 20:12
[2018-12-10] MEDS: QUEtiapine FUMARATE 25 MG TAB PO SCH (21:21)
[2018-12-11 06:44] VITALS: BP 130/69
[2018-12-11] MEDS: SERTRALINE HCL 25 MG TABLET PO SCH (08:24)
[2018-12-11] MEDS: ARIPiprazole 2 MG TAB PO SCH (08:24)
[2018-12-11] MEDS: hydrOXYzine 50 MG TAB PO PRN (09:42)
[2018-12-11] MEDS ORDERED: QUET1TAB7 PO (11:09)
[2018-12-11] MEDS ORDERED: ARIP2TAB PO (11:09)
[2018-12-11] MEDS ORDERED: HYDRO50TAB PO (11:09)
[2018-12-11] MEDS ORDERED: SERT25TA PO (11:09)
== END 2018-12-11 13:15 | disposition home or self-care (01) | DRG 751 ==
LOC: M ED 17:18 → M ED INP 20:32 → M PSY 21:40
PROVIDERS: ADMIT Psychiatry & Neurology Psychiatry; ATTEND Psychiatry & Neurology Psychiatry
DX: F32.2 Major depressive disorder, single episode, severe without psychotic features (principal); F60.3 Borderline personality disorder; F41.9 Anxiety disorder, unspecified; E66.9 Obesity, unspecified; Z68.34 Body mass index [BMI] 34.0-34.9, adult; D72.829 Elevated white blood cell count, unspecified; Z79.899 Other long term (current) drug therapy; Z88.8 Allergy status to other drugs, medicaments and biological substances

== ENCOUNTER 2020-02-10 18:05 | Emergency (ER) | payer OTHER ==
[~2020-02-10] VITALS: Ht 170.2 cm; Wt 125.0 kg
[~2020-02-10 18:05] MED LIST changes: +ARIP1TAB4 PO; +HYDR-3363 PO; +HYDR1TAB33 PO; +QUET1TAB7 PO; +SERT25TA85 PO; +ZOLO50TA PO
[2020-02-10] MEDS ORDERED: MIRE1IUD IU (18:12)
[2020-02-10 20:08] VITALS: BP 144/71
--- NOTE | 2020-02-11 01:36 | REP ---
RIGHT KNEE SERIES, FIVE VIEWS: HISTORY: Injury. COMPARISON: Right knee radiographs are from 10/28/2016. FINDINGS: Five views of the right knee demonstrate normal bones, joints, and soft tissues. No fracture or subluxation is seen. There is some clothing artifact visible. IMPRESSION: No fracture seen. Electronically Signed by Reji Fowler MD 02/11/2020 08:24 A
== END 2020-02-10 20:12 | disposition home or self-care (01) ==
LOC: M ED 18:05
DX: S76.111A Strain of right quadriceps muscle, fascia and tendon, initial encounter (principal); X50.0XXA Overexertion from strenuous movement or load, initial encounter; Y92.89 Other specified places as the place of occurrence of the external cause; Y93.89 Activity, other specified; Y99.0 Civilian activity done for income or pay; F41.9 Anxiety disorder, unspecified; F32.9 Major depressive disorder, single episode, unspecified; Z88.2 Allergy status to sulfonamides; Z79.899 Other long term (current) drug therapy; Z97.5 Presence of (intrauterine) contraceptive device

== ENCOUNTER 2021-06-08 21:41 | Outpatient (CLI) | payer OTHER ==
[~2021-06-08] VITALS: Ht 172.7 cm; Wt 123.4 kg
[~2021-06-08 21:41] MED LIST changes: +MIRE1IUD IU; +QUET1TAB17 PO; -QUET1TAB7 PO
[2021-06-08 22:25] VITALS: BP 140/66
[2021-06-08] MEDS ORDERED: HOME MED LIST COMPLETE! XX SCH (22:25)
[2021-06-08 22:41] LABS: HEMATOCRIT 38.7 % (36.0-47.0); HEMOGLOBIN 12.6 g/dl (12.0-15.5); MEAN CORPUSCULAR HEMOGLOBIN 28.4 pg (27.0-33.0); MEAN CORPUSCULAR HGB CONC 32.6 g/dl (32.0-36.5); MEAN CORPUSCULAR VOLUME 87.2 fl (80.0-96.0); PLATELET COUNT, AUTOMATED 260 10^3/uL (150-450); RED BLOOD COUNT 4.44 10^6/uL (4.00-5.40); WHITE BLOOD COUNT 12.8 10^3/uL (4.0-10.0)
[2021-06-08 22:53] LABS: INR 0.93; PROTHROMBIN TIME 12.9 SECONDS (12.7-14.5)
[2021-06-08 22:54] LABS: PARTIAL THROMBOPLASTIN TIME 32.4 SECONDS (25.9-37.0)
[2021-06-08 23:47] LABS: ALT/SGPT 21 U/L (12-78); BILIRUBIN,TOTAL 0.2 MG/DL (0.2-1.0); CREATININE FOR GFR 0.66 MG/DL (0.55-1.30); GLOMERULAR FILTRATION RATE > 60.0 (>60); LDH LACTATE DEHYDROGENASE 153 U/L (84-246); URIC ACID 4.1 MG/DL (2.6-6.0)
--- NOTE | 2021-06-09 09:44 | IPN ---
PROGRESS NOTE DATE: 06/08/2021 SUBJECTIVE: Genevieve presents to Labor and Delivery today with a report of falling down a ramp at approximately 2000. She denies vaginal bleeding and leakage of fluid. The fetus has been active. She does report some mild cramping as well as some right sided abdominal tenderness. She also complains of a left arm bruise and left wrist bruise. Her care was initiated at [facility] in [place], [place]. Her course was complicated by obesity and prior section x2. OBSTETRIC HISTORY: In 2006, 40 weeks, 6 pound, 7 ounce male, vaginal delivery, #2, February 13, 2010, 40 weeks, 6 pound, 7 ounce female, vaginal delivery, August 28, 2011, a 7 pound, 8 ounce female, vaginal delivery at 40 weeks gestation. OBSTETRIC LABS: A positive, antibody screen negative. PAP is normal. HPV negative for high risk, rubella immune, VDRL nonreactive, urine culture not done, hepatitis B surface antigen nonreactive. HIV negative. Gonorrhea and chlamydia negative. Gestational diabetic screening has not been done. Hepatitis C has not been done. GBS is unknown at this time. PAST MEDICAL HISTORY: Anxiety, depression, hypothyroid. PAST SURGICAL HISTORY: [employer] tooth extraction, cholecystectomy, radius and ulna repair and pinned, right knee surgery. FAMILY HISTORY: Suicide, COPD. SOCIAL HISTORY: The patient is . She is a nonsmoker. She denies alcohol and drug use. Denies a history of STDs and denies a history of abuse, physical, sexual and emotional. ALLERGIES: Nitrofurantoin. NKEA. NKSA. CURRENT MEDICATIONS: Levothyroxine 25 mcg and vitamin. OBJECTIVE: Patient appears mildly uncomfortable with her left arm. Her temperature is 97.9, pulse is 86 and her BP is 140/66. heart rate is 140 with moderate variability, positive accelerations, negative decelerations. There is no pattern of contractions. Sterile vaginal exam: Cervix is long, thick and closed, no bleeding observed. ASSESSMENT: Intrauterine at 30 weeks gestation. heart rate Category 1, status post fall. PLAN: Observe the patient on external external monitoring for four hours, CBC, PT/PTT, fibrinogen and KB have been ordered. Will reassess once labs have returned and she has been monitored approximately 4 hours status post fall.
== END 2021-06-09 02:00 | disposition home or self-care (01) ==
LOC: M LDO 21:41
PROVIDERS: ATTEND Advanced Practice Midwife
DX: O9A.213 Injury, poisoning and certain other consequences of external causes complicating pregnancy, third trimester (principal); S40.022A Contusion of left upper arm, initial encounter; Z3A.30 30 weeks gestation of pregnancy; O99.283 Endocrine, nutritional and metabolic diseases complicating pregnancy, third trimester; E03.9 Hypothyroidism, unspecified; Z88.8 Allergy status to other drugs, medicaments and biological substances; Z79.899 Other long term (current) drug therapy
CPT/HCPCS: 36415; 59025; 82247; 82565; 83615; 84450; 84460; 84550; 85027; 85384; 85460; 85610; 85730; G0378; G0463

== ENCOUNTER 2023-02-11 10:24 | Emergency (ER) | payer OTHER, SELFPAY ==
[~2023-02-11] VITALS: Ht 170.2 cm; Wt 124.7 kg
[2023-02-11 12:35] VITALS: BP 133/80
== END 2023-02-11 12:35 | disposition home or self-care (01) ==
LOC: M ED 10:24
DX: S80.911A Unspecified superficial injury of right knee, initial encounter (principal); W10.8XXA Fall (on) (from) other stairs and steps, initial encounter; Y99.0 Civilian activity done for income or pay; Z88.1 Allergy status to other antibiotic agents

== ENCOUNTER 2023-03-29 09:03 | Emergency (ER) | payer OTHER ==
[~2023-03-29] VITALS: Ht 167.6 cm; Wt 124.7 kg
[2023-03-29] MEDS ORDERED: AMOX875T2 PO (10:05)
[2023-03-29 10:28] VITALS: BP 131/79; TEMP 98.8; O2SAT 100
== END 2023-03-29 10:33 | disposition home or self-care (01) ==
LOC: M ED 09:03
DX: J02.0 Streptococcal pharyngitis (principal); Z88.8 Allergy status to other drugs, medicaments and biological substances; Z79.2 Long term (current) use of antibiotics; Z79.899 Other long term (current) drug therapy

== ENCOUNTER 2023-12-22 11:09 | Emergency (ER) | payer OTHER, SELFPAY ==
[~2023-12-22] VITALS: Ht 170.2 cm; Wt 124.2 kg
[~2023-12-22 11:09] MED LIST changes: +AMOX875T2 PO
[2023-12-22 11:10] VITALS: BP 146/67; TEMP 97.1; O2SAT 99
[2023-12-22] MEDS ORDERED: ERGO500029 (11:22)
[2023-12-22] MEDS ORDERED: LEVO137T2 (11:22)
[2023-12-22] MEDS ORDERED: SERTRALINE (11:22)
[2023-12-22] MEDS ORDERED: ERYT5OIN25 OP (12:37)
== END 2023-12-22 12:49 | disposition home or self-care (01) ==
LOC: M ED 11:38
DX: H10.42 Simple chronic conjunctivitis (principal); Z88.1 Allergy status to other antibiotic agents; Z79.899 Other long term (current) drug therapy; Z79.890 Hormone replacement therapy

== ENCOUNTER 2025-09-01 21:10 | Emergency (ER) | payer MEDICAID, OTHER, SELFPAY ==
[~2025-09-01 21:10] MED LIST changes: +ERGO500029; +ERYT5OIN25 OP; +LEVO137T2; +SERTRALINE
[2025-09-01] MEDS: NS (Normal Saline) 0.9% 1,000 ML IV ONE (21:50)
[2025-09-01 22:02] LABS: URINE PREG TEST NEGATIVE (NEGATIVE)
[2025-09-01 22:33] LABS: AMPHETAMINES LEVEL URINE NEGATIVE (NEGATIVE); BARBITURATES URINE NEGATIVE (NEGATIVE); BENZODIAZEPINES URINE NEGATIVE (NEGATIVE); COCAINE METABOLITE URINE NEGATIVE (NEGATIVE); METHADONE URINE NEGATIVE (NEGATIVE); OPIATES URINE NEGATIVE (NEGATIVE)
[2025-09-01 22:34] LABS: CANNABINOIDS URINE NEGATIVE (NEGATIVE); PHENCYCLIDINE URINE NEGATIVE (NEGATIVE)
[2025-09-01 23:29] LABS: BASO # 0.1 10^3/uL (0.0-0.2); BASO % 0.4 % (0.0-1.0); EOS # 0.1 10^3/uL (0.0-0.5); EOS % 1.0 % (0.0-3.0); LYMPH # 3.4 10^3/uL (1.5-5.0); LYMPH % 27.0 % (24.0-44.0); MONO # 0.8 10^3/uL (0.0-0.8); MONO % 6.1 % (2.0-8.0); NEUTROPHILS # 8.2 10^3/uL (1.5-8.5); NEUTROPHILS % 65.2 % (36.0-66.0); PLATELET COUNT, AUTOMATED 294 10^3/uL (150-450)
[2025-09-01 23:30] LABS: VENOUS BASE EXCESS -0.4 (-2.0-2.0); VENOUS HCO3 25.1 MMOL/L (23.0-27.0); VENOUS O2 SATURATION 81.6 % (60.0-80.0); VENOUS PARTIAL PRESSURE CO2 44.5 mmHg (38.0-50.0); VENOUS PARTIAL PRESSURE O2 46.6 mmHg (30.0-50.0); VENOUS PH 7.370 UNITS (7.330-7.430); VENOUS STANDARD HCO3 23.8 MMOL/L; VENOUS TOTAL CO2 26.5 MMOL/L (24.0-28.0)
[2025-09-01 23:36] LABS: CALCIUM LEVEL 8.0 MG/DL (8.5-10.1); CARBON DIOXIDE LEVEL 27 MMOL/L (20-31); CHLORIDE LEVEL 107 MMOL/L (98-107); CREATININE FOR GFR 0.78 MG/DL (0.55-1.30); GLOMERULAR FILTRATION RATE > 90.0 (>60); MAGNESIUM LEVEL 1.7 MG/DL (1.8-2.4); POTASSIUM SERUM 3.8 MMOL/L (3.5-5.1); SODIUM LEVEL 142 MMOL/L (136-145)
[2025-09-01 23:38] LABS: FREE T4 1.13 NG/DL (0.89-1.76)
[2025-09-01 23:56] VITALS: BP 121/54; TEMP 97.9; O2SAT 98
== END 2025-09-01 23:59 | disposition home or self-care (01) ==
LOC: EDBD 21:10 → M ED 21:10
DX: R55 Syncope and collapse (principal); E03.9 Hypothyroidism, unspecified; F17.200 Nicotine dependence, unspecified, uncomplicated; Z88.8 Allergy status to other drugs, medicaments and biological substances; Z79.1 Long term (current) use of non-steroidal anti-inflammatories (NSAID); Z79.899 Other long term (current) drug therapy